=== PATIENT | female | born 1975 | race Caucasian/White ===

== ENCOUNTER → 2019-10-01 | Outpatient (CLI) | payer BC | END | disposition home or self-care (01) | LOC: LAB 08:44 | PROVIDERS: ATTEND Surgery | DX: Z01.812 Encounter for preprocedural laboratory examination (principal); K31.1 Adult hypertrophic pyloric stenosis; R10.13 Epigastric pain | CPT/HCPCS: 93005 ==

== ENCOUNTER 2023-05-15 13:10 | Emergency (ER) | payer BC ==
[~2023-05-15] VITALS: Ht 162.6 cm; Wt 49.9 kg
[2023-05-15 13:11] VITALS: BP 100/69; PULSE 88; RESP 14
[2023-05-15] MEDS ORDERED: LIDOCAINE HCL 1% 20 ML VIAL INJ SCH (14:00)
[2023-05-15] MEDS ORDERED: DIPH,PERTUSS(ACELL),TET VAC/PF 0.5 ML VIAL IM ONE (14:30)
[2023-05-15 14:34] LABS: BASOPHILS # (AUTO) 0.02 K/uL (0.00-0.20); BASOPHILS % (AUTO) 0.2 % (0.0-5.0); EOSINOPHILS # (AUTO) 0.05 K/uL (0.00-0.70); EOSINOPHILS % (AUTO) 0.5 % (0.0-8.0); HEMATOCRIT 29.6 % (36-48); IMMATURE GRANULOCYTE ABSOLUTE 0.03 K/uL (0-1); LYMPHOCYTES # (AUTO) 1.2 K/uL (1.0-4.8); LYMPHOCYTES % (AUTO) 13.1 % (21.0-51.0); MEAN CORPUSCULAR HEMOGLOBIN 29.9 pg (27.0-33.0); MEAN CORPUSCULAR HGB CONC 31.8 g/dL (32.0-36.0); MEAN CORPUSCULAR VOLUME 94.3 fL (79-99); MONOCYTES # (AUTO) 0.6 K/uL (0.1-1.0); MONOCYTES % (AUTO) 6.5 % (3.0-13.0); NEUTROPHILS # (AUTO) 7.3 K/uL (1.8-7.7); NEUTROPHILS % (AUTO) 79.4 % (40.0-77.0); PLATELET COUNT (AUTO) 264 K/uL (130-400); RED BLOOD CELL COUNT(AUTO) 3.14 MIL/uL (4.00-5.50); RED CELL DISTRIBUTION WIDTH 12.8 % (11.0-15.5); WHITE BLOOD COUNT (AUTO) 9.2 K/uL (4.8-10.8)
[2023-05-15 14:47] LABS: CREATININE 0.7 mg/dL (0.5-1.5); POTASSIUM 3.7 mmol/L (3.5-5.1)
[2023-05-15 14:52] LABS: ALBUMIN 3.7 g/dL (3.5-5.0); BILIRUBIN,TOTAL 0.2 mg/dL (0.2-1.0); TOTAL PROTEIN, SERUM 6.5 g/dL (6.0-8.3)
[2023-05-15] MEDS ORDERED: IBUP-2076 PO (15:57)
[2023-05-15] MEDS ORDERED: MUPI22OI2 TP (15:57)
[2023-05-15] MEDS ORDERED: BACITRACIN 1 EACH PACKET TP ONE (16:10)
== END 2023-05-15 16:14 | disposition home or self-care (01) ==
LOC: EDH 13:10
DX: S01.81XA Laceration without foreign body of other part of head, initial encounter (principal); R55 Syncope and collapse; R42 Dizziness and giddiness; F41.9 Anxiety disorder, unspecified; Z90.49 Acquired absence of other specified parts of digestive tract; W18.39XA Other fall on same level, initial encounter; Y93.89 Activity, other specified; Y92.89 Other specified places as the place of occurrence of the external cause; Y99.8 Other external cause status
CPT/HCPCS: 12013; 36415; 70450; 70486; 80053; 84484; 85025; 90471; 90715; 93005

== ENCOUNTER 2023-05-16 10:43 | Inpatient (IN) | payer BC ==
[~2023-05-16] VITALS: Ht 162.6 cm; Wt 50.2 kg
[~2023-05-16 10:43] MED LIST: IBUP-2076 PO; MUPI22OI2 TP
[2023-05-16] MEDS ORDERED: MECLIZINE HCL 25 MG TABLET PO ONE (13:00)
[2023-05-16 14:12] LABS: BASOPHILS # (AUTO) 0.02 K/uL (0.00-0.20); BASOPHILS % (AUTO) 0.3 % (0.0-5.0); EOSINOPHILS # (AUTO) 0.07 K/uL (0.00-0.70); EOSINOPHILS % (AUTO) 1.1 % (0.0-8.0); HEMATOCRIT 23.8 % (36-48); IMMATURE GRANULOCYTE ABSOLUTE 0.02 K/uL (0-1); LYMPHOCYTES # (AUTO) 1.4 K/uL (1.0-4.8); LYMPHOCYTES % (AUTO) 21.4 % (21.0-51.0); MEAN CORPUSCULAR HEMOGLOBIN 30.5 pg (27.0-33.0); MEAN CORPUSCULAR HGB CONC 31.9 g/dL (32.0-36.0); MEAN CORPUSCULAR VOLUME 95.6 fL (79-99); MONOCYTES # (AUTO) 0.3 K/uL (0.1-1.0); MONOCYTES % (AUTO) 4.4 % (3.0-13.0); NEUTROPHILS # (AUTO) 4.6 K/uL (1.8-7.7); NEUTROPHILS % (AUTO) 72.5 % (40.0-77.0); PLATELET COUNT (AUTO) 214 K/uL (130-400); RED BLOOD CELL COUNT(AUTO) 2.49 MIL/uL (4.00-5.50); RED CELL DISTRIBUTION WIDTH 12.7 % (11.0-15.5); WHITE BLOOD COUNT (AUTO) 6.3 K/uL (4.8-10.8)
[2023-05-16 14:20] LABS: CREATININE 0.6 mg/dL (0.5-1.5); POTASSIUM 3.7 mmol/L (3.5-5.1)
[2023-05-16 14:41] LABS: ALBUMIN 3.3 g/dL (3.5-5.0); BILIRUBIN,TOTAL 0.1 mg/dL (0.2-1.0); TOTAL PROTEIN, SERUM 6.1 g/dL (6.0-8.3)
[2023-05-16 17:44] LABS: RETICULOCYTE % (AUTO) 3.05 % (0.42-2.23)
[2023-05-16 17:50] LABS: HEMOGLOBIN A1C 5.1 % (4.0-6.0)
[2023-05-16 18:08] LABS: % IRON SATURATION 30.5 % (22-44)
[2023-05-16 18:25] LABS: THYROID STIMULATING HORMONE 2.32 uIU/mL (0.36-3.74)
[2023-05-16] MEDS ORDERED: PANTOPRAZOLE 40 MG/VIAL IVP SCH (21:00)
[2023-05-16] MEDS: 0.9%NACL 1000ML 1,000 ML IV SCH (22:29)
[2023-05-16] MEDS ORDERED: LOSARTAN 25 MG TABLET PO ONE (22:56)
[2023-05-16 23:43] LABS: HEMATOCRIT 20.4 % (36-48)
[2023-05-16 23:49] LABS: RETICULOCYTE % (AUTO) 2.74 % (0.42-2.23)
[2023-05-16] MEDS ORDERED: IOHEXOL-350 75 ML VIAL IV ONE (23:54)
[2023-05-16] MEDS ORDERED: IOHEXOL 350 MG/ML 100ML INFUS..BTL IV ONE (23:55)
[2023-05-17 00:01] LABS: AMPHET/METH SCREEN,URINE NEGATIVE (NEGATIVE); BARBITURATE SCREEN, URINE NEGATIVE (NEGATIVE); BENZODIAZEPINES SCREEN,URINE NEGATIVE (NEGATIVE); CANNABINOID SCREEN,URINE NEGATIVE (NEGATIVE); COCAINE SCREEN,URINE NEGATIVE (NEGATIVE); OPIATE SCREEN,URINE NEGATIVE (NEGATIVE); PHENCYCLIDINE SCREEN,URINE NEGATIVE (NEGATIVE)
[2023-05-17 00:02] LABS: INR 0.95 (0.85-1.15); PROTHROMBIN TIME 11.1 SEC (9.6-11.6)
[2023-05-17 00:03] LABS: PARTIAL THROMBOPLASTIN TIME 23.5 SEC (26.3-35.5)
[2023-05-17 00:04] LABS: ALBUMIN 2.7 g/dL (3.5-5.0); BILIRUBIN,TOTAL 0.1 mg/dL (0.2-1.0); TOTAL PROTEIN, SERUM 4.9 g/dL (6.0-8.3)
[2023-05-17 00:15] LABS: BILIRUBIN,DIRECT 0.1 mg/dL (0.0-0.3)
[2023-05-17] MEDS: 0.9%NACL 1000ML 1,000 ML IV SCH ×3 (03:30→23:30)
[2023-05-17 04:50] LABS: HEMATOCRIT 25.5 % (36-48)
[2023-05-17 08:00] VITALS: BP 102/53; PULSE 78; RESP 18
[2023-05-17 08:30] VITALS: O2SAT 98
[2023-05-17 09:42] LABS: HEMATOCRIT 22.5 % (36-48)
[2023-05-17 09:58] LABS: CREATININE 0.6 mg/dL (0.5-1.5); POTASSIUM 3.6 mmol/L (3.5-5.1)
[2023-05-17] MEDS ORDERED: PARO-149 PO (11:48)
[2023-05-17] MEDS: [UNRECOGNIZED DRUG - OTHER] IV SCH ×4 (11:54→18:55)
[2023-05-17] MEDS: PANTOPRAZOLE IV SCH ×4 (11:54→18:55)
[2023-05-17 12:00] VITALS: BP 97/56; PULSE 87; RESP 16
[2023-05-17] MEDS ORDERED: ACETAMINOPHEN 325 MG TAB PO PRN (12:00)
[2023-05-17 15:21] LABS: HEMATOCRIT 22.7 % (36-48)
[2023-05-17 16:00] VITALS: BP 100/62; PULSE 78; RESP 14
[2023-05-17 17:02] VITALS: BP 111/65; PULSE 78; RESP 20
[2023-05-17] MEDS: CYANOCOBALAMIN (VITAMIN B-12) 1000 MCG/ML 1ML VIAL IM SCH (17:17)
[2023-05-17 20:00] VITALS: BP 110/52; PULSE 80; RESP 18; O2SAT 98
[2023-05-18] VITALS (7 sets, daily range): BP systolic 102–125; BP diastolic 57–75; PULSE 68–74; RESP 16–20; O2SAT 98
[2023-05-18 06:25] LABS: BASOPHILS # (AUTO) 0.02 K/uL (0.00-0.20); BASOPHILS % (AUTO) 0.5 % (0.0-5.0); EOSINOPHILS # (AUTO) 0.14 K/uL (0.00-0.70); EOSINOPHILS % (AUTO) 3.7 % (0.0-8.0); HEMATOCRIT 22.8 % (36-48); IMMATURE GRANULOCYTE ABSOLUTE 0.02 K/uL (0-1); LYMPHOCYTES # (AUTO) 0.8 K/uL (1.0-4.8); LYMPHOCYTES % (AUTO) 21.8 % (21.0-51.0); MEAN CORPUSCULAR HEMOGLOBIN 29.1 pg (27.0-33.0); MEAN CORPUSCULAR VOLUME 90.8 fL (79-99); MONOCYTES # (AUTO) 0.3 K/uL (0.1-1.0); MONOCYTES % (AUTO) 6.6 % (3.0-13.0); NEUTROPHILS # (AUTO) 2.5 K/uL (1.8-7.7); NEUTROPHILS % (AUTO) 66.9 % (40.0-77.0); PLATELET COUNT (AUTO) 134 K/uL (130-400); RED BLOOD CELL COUNT(AUTO) 2.51 MIL/uL (4.00-5.50); WHITE BLOOD COUNT (AUTO) 3.8 K/uL (4.8-10.8)
[2023-05-18 06:36] LABS: CREATININE 0.5 mg/dL (0.5-1.5); MAGNESIUM 1.9 mg/dL (1.80-2.40); PHOSPHORUS 3.5 mg/dL (2.5-4.9); POTASSIUM 3.4 mmol/L (3.5-5.1)
[2023-05-18] MEDS: PANTOPRAZOLE IV SCH ×2 (08:02→16:13)
[2023-05-18] MEDS: CYANOCOBALAMIN (VITAMIN B-12) 1000 MCG/ML 1ML VIAL IM SCH (08:02)
[2023-05-18] MEDS: [UNRECOGNIZED DRUG - OTHER] IV SCH ×2 (08:02→16:13)
[2023-05-18] MEDS ORDERED: COMPOUND IV REFRIGERATED 1 EACH IVSOLN MISC PRN (12:00)
[2023-05-18] MEDS: 0.9%NACL 1000ML 1,000 ML IV SCH ×2 (16:14→19:30)
[2023-05-18] MEDS ORDERED: PEG 3350/NA SULF,BICARB,CL/KCL 4000 ML SOLN PO STA (16:49)
[2023-05-18] MEDS ORDERED: KCL 20 MEQ ERTAB PO PRN (17:30)
[2023-05-18] MEDS ORDERED: POTASSIUM CHLORIDE 20MEQ/100ML 100 ML IV PRN (17:30)
[2023-05-18] MEDS ORDERED: MAGNESIUM 2GM PREMIX 50ML 50 ML IV PRN (17:30)
[2023-05-18] MEDS ORDERED: POTASSIUM CHLORIDE 10% ELIXIR 20 MEQ/15 ML UDCUP PO PRN (17:30)
[2023-05-19] VITALS (20 sets, daily range): BP systolic 104–135; BP diastolic 60–88; PULSE 63–82; RESP 15–20; O2SAT 98
[2023-05-19 05:23] LABS: BASOPHILS # (AUTO) 0.02 K/uL (0.00-0.20); BASOPHILS % (AUTO) 0.6 % (0.0-5.0); EOSINOPHILS # (AUTO) 0.14 K/uL (0.00-0.70); EOSINOPHILS % (AUTO) 4.5 % (0.0-8.0); HEMATOCRIT 23.2 % (36-48); IMMATURE GRANULOCYTE ABSOLUTE 0.01 K/uL (0-1); LYMPHOCYTES # (AUTO) 0.6 K/uL (1.0-4.8); LYMPHOCYTES % (AUTO) 20.4 % (21.0-51.0); MEAN CORPUSCULAR HEMOGLOBIN 29.6 pg (27.0-33.0); MEAN CORPUSCULAR HGB CONC 31.9 g/dL (32.0-36.0); MEAN CORPUSCULAR VOLUME 92.8 fL (79-99); MONOCYTES # (AUTO) 0.2 K/uL (0.1-1.0); MONOCYTES % (AUTO) 7.3 % (3.0-13.0); NEUTROPHILS # (AUTO) 2.1 K/uL (1.8-7.7); NEUTROPHILS % (AUTO) 66.9 % (40.0-77.0); PLATELET COUNT (AUTO) 141 K/uL (130-400); RED CELL DISTRIBUTION WIDTH 15.9 % (11.0-15.5); WHITE BLOOD COUNT (AUTO) 3.1 K/uL (4.8-10.8)
[2023-05-19 05:29] LABS: CREATININE 0.5 mg/dL (0.5-1.5); POTASSIUM 3.7 mmol/L (3.5-5.1)
[2023-05-19] MEDS: [UNRECOGNIZED DRUG - OTHER] IV SCH ×3 (05:40→20:57)
[2023-05-19] MEDS: PANTOPRAZOLE IV SCH ×3 (05:40→20:57)
[2023-05-19] MEDS: 0.9%NACL 1000ML 1,000 ML IV SCH ×3 (05:41→20:55)
[2023-05-19] MEDS: CYANOCOBALAMIN (VITAMIN B-12) 1000 MCG/ML 1ML VIAL IM SCH (08:53)
[2023-05-19] MEDS ORDERED: PROPOFOL 10 MG/ML 20ML VIAL IV ONE (12:52)
[2023-05-19] MEDS ORDERED: PEG 3350/NA SULF,BICARB,CL/KCL 4000 ML SOLN PO ONE (15:00)
[2023-05-20] VITALS (18 sets, daily range): BP systolic 93–125; BP diastolic 46–75; PULSE 66–97; RESP 12–20; O2SAT 98
[2023-05-20 04:51] LABS: BASOPHILS # (AUTO) 0.02 K/uL (0.00-0.20); BASOPHILS % (AUTO) 0.6 % (0.0-5.0); EOSINOPHILS # (AUTO) 0.12 K/uL (0.00-0.70); EOSINOPHILS % (AUTO) 3.5 % (0.0-8.0); HEMATOCRIT 23.2 % (36-48); IMMATURE GRANULOCYTE ABSOLUTE 0.01 K/uL (0-1); LYMPHOCYTES # (AUTO) 0.7 K/uL (1.0-4.8); LYMPHOCYTES % (AUTO) 21.2 % (21.0-51.0); MEAN CORPUSCULAR HEMOGLOBIN 29.2 pg (27.0-33.0); MEAN CORPUSCULAR HGB CONC 31.5 g/dL (32.0-36.0); MEAN CORPUSCULAR VOLUME 92.8 fL (79-99); MONOCYTES # (AUTO) 0.2 K/uL (0.1-1.0); MONOCYTES % (AUTO) 6.7 % (3.0-13.0); NEUTROPHILS # (AUTO) 2.3 K/uL (1.8-7.7); NEUTROPHILS % (AUTO) 67.7 % (40.0-77.0); PLATELET COUNT (AUTO) 165 K/uL (130-400); RED CELL DISTRIBUTION WIDTH 15.7 % (11.0-15.5); WHITE BLOOD COUNT (AUTO) 3.4 K/uL (4.8-10.8)
[2023-05-20 04:58] LABS: CREATININE 0.5 mg/dL (0.5-1.5); POTASSIUM 4.1 mmol/L (3.5-5.1)
[2023-05-20] MEDS: 0.9%NACL 1000ML 1,000 ML IV SCH (05:15)
[2023-05-20] MEDS ORDERED: LIDOCAINE PF 100MG/5ML (2%) SYRINGE 5ML ONE (10:55)
[2023-05-20] MEDS ORDERED: PROPOFOL 10 MG/ML 20ML VIAL IV ONE ×3 (10:55→11:47)
[2023-05-20] MEDS ORDERED: ONDANSETRON 4MG INJ ONE (10:56)
[2023-05-20] MEDS: CYANOCOBALAMIN (VITAMIN B-12) 1000 MCG/ML 1ML VIAL IM SCH (12:59)
[2023-05-20] MEDS ORDERED: CYAN25006 SL (14:26)
[2023-05-20] MEDS ORDERED: PANT40TA PO (14:26)
[2023-05-21] MEDS ORDERED: PANTOPRAZOLE 40 MG TAB DR PO SCH (09:00)
== END 2023-05-20 15:02 | disposition home or self-care (01) | DRG 812 ==
LOC: EDH 10:43 → EDHIP 17:23 → 3AH 05-17 16:47
PROVIDERS: ADMIT Internal Medicine; ATTEND Internal Medicine
PROC: 30233N1 Transfusion of Nonautologous Red Blood Cells into Peripheral Vein, Percutaneous Approach (ICD-10-PCS; 2023-05-16)
PROC: 0DJ08ZZ Inspection of Upper Intestinal Tract, Via Natural or Artificial Opening Endoscopic (ICD-10-PCS; principal; 2023-05-19)
PROC: 0DJD8ZZ Inspection of Lower Intestinal Tract, Via Natural or Artificial Opening Endoscopic (ICD-10-PCS; 2023-05-19)
PROC: 0DJD8ZZ Inspection of Lower Intestinal Tract, Via Natural or Artificial Opening Endoscopic (ICD-10-PCS; 2023-05-20)
DX: D62 Acute posthemorrhagic anemia (principal); S01.81XA Laceration without foreign body of other part of head, initial encounter; D50.9 Iron deficiency anemia, unspecified; E53.8 Deficiency of other specified B group vitamins; K29.70 Gastritis, unspecified, without bleeding; K64.4 Residual hemorrhoidal skin tags; F41.9 Anxiety disorder, unspecified; K64.8 Other hemorrhoids; I08.1 Rheumatic disorders of both mitral and tricuspid valves; E11.9 Type 2 diabetes mellitus without complications; I10 Essential (primary) hypertension; I25.10 Atherosclerotic heart disease of native coronary artery without angina pectoris; Z86.73 Personal history of transient ischemic attack (TIA), and cerebral infarction without residual deficits; G40.909 Epilepsy, unspecified, not intractable, without status epilepticus; W18.39XA Other fall on same level, initial encounter; Z90.49 Acquired absence of other specified parts of digestive tract; Y93.89 Activity, other specified; Y92.89 Other specified places as the place of occurrence of the external cause; Y99.8 Other external cause status; Z90.710 Acquired absence of both cervix and uterus; Z87.11 Personal history of peptic ulcer disease
CPT/HCPCS: 12013; 36415; 43235; 45378; 70450; 70486; 74177; 80048; 80053; 80076; 80305; 82270; 82550; 82607; 82728; 83010; 83036; 83735; 84100; 84145; 84443; 84484; 84703; 85014; 85018; 85025; 85045; 85610; 85730; 86850; 86880; 86900; 86901; 86923; 90471; 90715; 93005; 93306; 93356; 93880; 96361; 96374; A4606; C9113; G0378; J2001; J2405; J2704; J3420; J3475; J7030; P9016; Q9967; A4215; A4222; A4223; A4620; A7002; J3490